=== PATIENT | female | born 1960 | race Caucasian/White ===

== ENCOUNTER 2021-07-20 13:00 | Day surgery (SDC) | payer OTHER ==
[2021-07-20] MEDS ORDERED: Depo-Medrol 40 MG/ML IM ONE (13:01)
[2021-07-20] MEDS ORDERED: LIDOCAINE HCL 2% 100 MG/5 ML IJ ONE (13:01)
[2021-07-20] MEDS ORDERED: Lactated Ringers 1,000 ML IV ONE (15:01)
[2021-07-20] MEDS ORDERED: DIPRIVAN 200 MG/20 ML IV ONE (15:09)
--- NOTE | 2021-07-20 16:54 | XRAY ---
Indication: Left L3-S1 MBB. Intraoperative fluoroscopy provided for 18 seconds. Single digital spot image submitted for interpretation demonstrates posterior needle tips projecting over the expected left L3-S1 nerve roots. Correlate with intraoperative findings/report.
--- NOTE | 2021-07-20 17:10 | XRAY ---
18 seconds fluoroscopy time in surgery for left L3-S1 MBB,
== END 2021-07-20 15:37 | disposition home or self-care (01) ==
LOC: SDC-PAIN 13:00
PROVIDERS: ATTEND Psychiatry & Neurology Pain Medicine
DX: M47.816 Spondylosis without myelopathy or radiculopathy, lumbar region (principal); Z79.899 Other long term (current) drug therapy
CPT/HCPCS: 64493; 64494; 64495; 72020; 77002; J1030; J2704

== ENCOUNTER 2021-09-22 08:28 | Day surgery (SDC) | payer OTHER ==
[2021-09-22] MEDS ORDERED: Xylocaine 1% Vial 30 ML PF IJ ONE (08:29)
[2021-09-22] MEDS ORDERED: Depo-Medrol 40 MG/ML IM ONE (08:29)
[2021-09-22] MEDS ORDERED: Marcaine Mpf 0.5% Vial 30 Ml IJ ONE (08:29)
[2021-09-22] MEDS ORDERED: Lactated Ringers 1,000 ML IV ONE (10:01)
[2021-09-22] MEDS ORDERED: DIPRIVAN 200 MG/20 ML IV ONE (10:17)
--- NOTE | 2021-09-22 11:21 | XRAY ---
Indication: Bilateral SI joint injection. Intraoperative fluoroscopy provided for 20 seconds. 4 digital spot images submitted for interpretation demonstrates posterior needle tip projecting over the inferior left and right SI joint. Correlate with intraoperative findings/report.
--- NOTE | 2021-09-22 14:50 | XRAY ---
20 seconds of fluoroscopy was used in surgery for bilateral SI joints injections.
== END 2021-09-22 10:40 | disposition home or self-care (01) ==
LOC: SDC-PAIN 08:28
PROVIDERS: ATTEND Psychiatry & Neurology Pain Medicine
DX: M46.1 Sacroiliitis, not elsewhere classified (principal); Z79.899 Other long term (current) drug therapy
CPT/HCPCS: 27096; 72202; 77002; G0260; J1030; J2001; J2704

== ENCOUNTER 2021-11-09 11:07 | Day surgery (SDC) | payer OTHER ==
[2021-11-09] MEDS ORDERED: LIDOCAINE HCL 2% 100 MG/5 ML IJ ONE (11:08)
[2021-11-09] MEDS ORDERED: DIPRIVAN 200 MG/20 ML IV ONE (13:13)
--- NOTE | 2021-11-09 14:11 | XRAY ---
Indication: Bilateral L4-S1 MBB. Intraoperative fluoroscopy provided for 10 seconds. 2 digital spot images submitted for interpretation demonstrates posterior needle tips projecting over the expected left and right L4-S1 nerve roots. Correlate with intraoperative findings/report.
[2021-11-09] MEDS ORDERED: Lactated Ringers 1,000 ML IV ONE (14:23)
--- NOTE | 2021-11-09 14:54 | XRAY ---
10 seconds fluoroscopy time in surgery for bilateral L4-S1 MBB.
== END 2021-11-09 13:30 | disposition home or self-care (01) ==
LOC: SDC-PAIN 11:07
PROVIDERS: ATTEND Psychiatry & Neurology Pain Medicine
DX: M47.816 Spondylosis without myelopathy or radiculopathy, lumbar region (principal); Z79.899 Other long term (current) drug therapy
CPT/HCPCS: 64493; 64494; 72020; 77002; J2704

== ENCOUNTER 2021-11-30 14:03 | Day surgery (SDC) | payer OTHER ==
[2021-11-30] MEDS ORDERED: DIPRIVAN 200 MG/20 ML IV ONE (16:29)
[2021-11-30] MEDS ORDERED: Lactated Ringers 1,000 ML IV ONE (16:43)
--- NOTE | 2021-11-30 20:16 | XRAY ---
Indication: Bilateral SI joint injection. Intraoperative fluoroscopy provided for 22 seconds. 5 digital spot images submitted for interpretation demonstrates posterior needle tip projecting over the inferior left and right SI joint. Correlate with intraoperative findings/report.
--- NOTE | 2021-12-01 09:44 | XRAY ---
22 seconds of fluoroscopy was used in surgery for bilateral SI joint injections.
== END 2021-11-30 16:55 | disposition home or self-care (01) ==
LOC: SDC-PAIN 14:03
PROVIDERS: ATTEND Psychiatry & Neurology Pain Medicine
DX: M46.1 Sacroiliitis, not elsewhere classified (principal); Z79.899 Other long term (current) drug therapy
CPT/HCPCS: 27096; 72202; 77002; G0260; J2704

== ENCOUNTER 2022-01-18 08:31 | Day surgery (SDC) | payer OTHER ==
[2022-01-18] MEDS ORDERED: BUPIVACAINE 0.5% VIAL IJ ONE (08:32)
[2022-01-18] MEDS ORDERED: Depo-Medrol 40 MG/ML IM ONE (08:32)
[2022-01-18] MEDS ORDERED: DIPRIVAN 200 MG/20 ML IV ONE (09:53)
[2022-01-18] MEDS ORDERED: Lactated Ringers 1,000 ML IV ONE (14:25)
--- NOTE | 2022-01-18 18:01 | XRAY ---
Indication: Bilateral SI joint injection. Intraoperative fluoroscopy provided for 15 seconds. 4 digital spot images submitted for interpretation demonstrates posterior needle tip projecting over the left and right SI joint. Correlate with intraoperative findings/report.
--- NOTE | 2022-01-18 18:33 | XRAY ---
15 seconds of fluoroscopy was used in surgery for bilateral sacroiliac joint injections.
== END 2022-01-18 10:20 | disposition home or self-care (01) ==
LOC: SDC-PAIN 08:31
PROVIDERS: ATTEND Psychiatry & Neurology Pain Medicine
DX: M46.1 Sacroiliitis, not elsewhere classified (principal); Z79.899 Other long term (current) drug therapy
CPT/HCPCS: 27096; 72202; 77002; J1030; J2704; G0260

== ENCOUNTER 2022-03-01 12:15 | Day surgery (SDC) | payer OTHER ==
[2022-03-01] MEDS ORDERED: LIDOCAINE HCL 2% 100 MG/5 ML IJ ONE (12:16)
[2022-03-01] MEDS ORDERED: DIPRIVAN 200 MG/20 ML IV ONE (15:03)
[2022-03-01] MEDS ORDERED: Lactated Ringers 1,000 ML IV ONE (15:50)
--- NOTE | 2022-03-01 16:43 | XRAY ---
Indication: Bilateral L2-L4 MBB. Intraoperative fluoroscopy provided for 9 seconds. Single digital spot image submitted for interpretation demonstrates posterior needle tips projecting over the expected left and right L2-L4 nerve roots. Correlate with intraoperative findings/report.
--- NOTE | 2022-03-01 16:58 | XRAY ---
9 seconds fluoroscopy time in surgery for bilateral L2-L4 MBB.
== END 2022-03-01 15:24 | disposition home or self-care (01) ==
LOC: SDC-PAIN 12:15
PROVIDERS: ATTEND Psychiatry & Neurology Pain Medicine
DX: M47.816 Spondylosis without myelopathy or radiculopathy, lumbar region (principal); Z79.899 Other long term (current) drug therapy
CPT/HCPCS: 64493; 64494; 72020; 77002; J2704

== ENCOUNTER 2022-04-19 10:32 | Day surgery (SDC) | payer OTHER ==
[2022-04-19] MEDS ORDERED: BUPIVACAINE 0.5% VIAL IJ ONE (10:33)
[2022-04-19] MEDS ORDERED: DIPRIVAN 200 MG/20 ML IV ONE (12:33)
[2022-04-19] MEDS ORDERED: Lactated Ringers 1,000 ML IV ONE (13:04)
--- NOTE | 2022-04-19 13:15 | XRAY ---
9 seconds fluoroscopy time in surgery for bilateral L2-L4 MBB.
== END 2022-04-19 12:54 | disposition home or self-care (01) ==
LOC: SDC-PAIN 10:32
PROVIDERS: ATTEND Psychiatry & Neurology Pain Medicine
DX: M47.816 Spondylosis without myelopathy or radiculopathy, lumbar region (principal); Z79.899 Other long term (current) drug therapy
CPT/HCPCS: 64493; 64494; 72020; 77002; J2704

== ENCOUNTER 2022-05-10 09:45 | Day surgery (SDC) | payer OTHER ==
[2022-05-10] MEDS ORDERED: LIDOCAINE HCL 1% 50 MG/5 ML VL PF IJ ONE (09:46)
[2022-05-10] MEDS ORDERED: BUPIVACAINE 0.5% VIAL IJ ONE (09:46)
[2022-05-10] MEDS ORDERED: Depo-Medrol 40 MG/ML IM ONE (09:46)
[2022-05-10] MEDS ORDERED: DIPRIVAN 200 MG/20 ML IV ONE (11:52)
--- NOTE | 2022-05-10 14:36 | XRAY ---
Indication: Right L2-L4 RFA. Intraoperative fluoroscopy provided for 21 seconds. 3 digital spot image submitted for interpretation demonstrates posterior needle tips projecting over the expected right L2-L4 nerve roots. Correlate with intraoperative findings/report.
--- NOTE | 2022-05-10 14:56 | XRAY ---
21 seconds of fluoroscopy was used in surgery for a right L2-L4 RFA.
[2022-05-10] MEDS ORDERED: Lactated Ringers 1,000 ML IV ONE (15:31)
== END 2022-05-10 12:30 | disposition home or self-care (01) ==
LOC: SDC-PAIN 09:45
PROVIDERS: ATTEND Psychiatry & Neurology Pain Medicine
DX: M47.816 Spondylosis without myelopathy or radiculopathy, lumbar region (principal); Z79.899 Other long term (current) drug therapy
CPT/HCPCS: 64635; 64636; 72100; 77002; J1030; J2001; J2704

== ENCOUNTER 2022-05-17 09:46 | Day surgery (SDC) | payer OTHER ==
[2022-05-17] MEDS ORDERED: BUPIVACAINE 0.5% VIAL IJ ONE (09:47)
[2022-05-17] MEDS ORDERED: Depo-Medrol 40 MG/ML IM ONE (09:47)
[2022-05-17] MEDS ORDERED: LIDOCAINE HCL 1% 50 MG/5 ML VL PF IJ ONE (09:47)
[2022-05-17] MEDS ORDERED: Versed 2 MG/2 ML Injection ONE (10:23)
[2022-05-17] MEDS ORDERED: Lactated Ringers 1,000 ML IV ONE (11:38)
[2022-05-17] MEDS ORDERED: DIPRIVAN 200 MG/20 ML IV ONE (11:49)
--- NOTE | 2022-05-17 12:23 | XRAY ---
Indication: Left L2-L4 RFA. Intraoperative fluoroscopy provided for 39 seconds. 5 digital spot image submitted for interpretation demonstrates posterior needle tips projecting over the expected left L2-L4 nerve roots. Correlate with intraoperative findings/report.
--- NOTE | 2022-05-17 12:25 | XRAY ---
39 seconds of fluoroscopy was used in surgery for a left L2-L4 RFA.
== END 2022-05-17 12:18 | disposition home or self-care (01) ==
LOC: SDC-PAIN 09:46
PROVIDERS: ATTEND Psychiatry & Neurology Pain Medicine
DX: M47.816 Spondylosis without myelopathy or radiculopathy, lumbar region (principal); Z79.899 Other long term (current) drug therapy
CPT/HCPCS: 64635; 64636; 72100; 77002; J1030; J2001; J2250; J2704

== ENCOUNTER 2022-08-02 08:52 | Day surgery (SDC) | payer OTHER ==
[2022-08-02] MEDS ORDERED: Depo-Medrol 40 MG/ML IM ONE (08:53)
[2022-08-02] MEDS ORDERED: BUPIVACAINE 0.5% VIAL IJ ONE (08:53)
[2022-08-02] MEDS ORDERED: DIPRIVAN 200 MG/20 ML IV ONE (10:45)
--- NOTE | 2022-08-02 12:19 | XRAY ---
Indication: Bilateral SI joint injection. Intraoperative fluoroscopy provided for 15 seconds. 4 digital spot image submitted for interpretation demonstrates posterior needle tip projecting over the left and right SI joint. Correlate with intraoperative findings/report.
--- NOTE | 2022-08-02 12:44 | XRAY ---
15 seconds of fluoroscopy was used in surgery for a bilateral sacroiliac joint injection.
[2022-08-02] MEDS ORDERED: Lactated Ringers 1,000 ML IV ONE (13:16)
== END 2022-08-02 11:15 | disposition home or self-care (01) ==
LOC: SDC-PAIN 08:52
PROVIDERS: ATTEND Psychiatry & Neurology Pain Medicine
DX: M46.1 Sacroiliitis, not elsewhere classified (principal); Z79.899 Other long term (current) drug therapy
CPT/HCPCS: 01992; 27096; 72202; 77002; G0260; J1030; J2704

== ENCOUNTER 2022-09-27 13:31 | Day surgery (SDC) | payer OTHER ==
[2022-09-27] MEDS ORDERED: Sodium Chloride 0.9(Preservative Free) 10 ML IJ ONE (13:32)
[2022-09-27] MEDS ORDERED: LIDOCAINE HCL 1% 50 MG/5 ML VL PF IJ ONE (13:32)
[2022-09-27] MEDS ORDERED: Depo-Medrol 40 MG/ML IM ONE (13:32)
[2022-09-27] MEDS ORDERED: DIPRIVAN 200 MG/20 ML IV ONE (15:31)
--- NOTE | 2022-09-27 16:41 | XRAY ---
Indication: Lumbar MARQUEZ. Intraoperative fluoroscopy provided for 19 seconds. 3 digital spot image submitted for interpretation demonstrates posterior needle tip projecting posterior to lumbosacral interspace. Small amount of contrast injected for needle tip placement. Correlate with intraoperative findings/report.
--- NOTE | 2022-09-27 16:44 | XRAY ---
19 seconds of fluoroscopy was used in surgery for a lumbar MARQUEZ.
[2022-09-27] MEDS ORDERED: Lactated Ringers 1,000 ML IV ONE (17:42)
== END 2022-09-27 16:05 | disposition home or self-care (01) ==
LOC: SDC-PAIN 13:31
PROVIDERS: ATTEND Psychiatry & Neurology Pain Medicine
DX: M54.16 Radiculopathy, lumbar region (principal); Z79.899 Other long term (current) drug therapy
CPT/HCPCS: 62323; 72100; 77003; J1030; J2001; J2704; Q9966

== ENCOUNTER 2023-01-17 07:57 | Day surgery (SDC) | payer OTHER ==
[2023-01-17] MEDS ORDERED: BUPIVACAINE 0.5% VIAL IJ ONE (07:58)
[2023-01-17] MEDS ORDERED: Depo-Medrol 40 MG/ML IM ONE (07:58)
[2023-01-17] MEDS ORDERED: DIPRIVAN 200 MG/20 ML IV ONE (09:35)
[2023-01-17] MEDS ORDERED: MORPHINE SULFATE 2 MG INJ ONE (09:51)
[2023-01-17] MEDS ORDERED: Lactated Ringers 1,000 ML IV ONE (10:27)
--- NOTE | 2023-01-17 11:34 | XRAY ---
Indication: Bilateral SI joint injection. Intraoperative fluoroscopy provided for 16 seconds. 4 digital spot images submitted for interpretation demonstrates posterior needle tip projecting over the expected left and right SI joint. Correlate with intraoperative findings/report.
--- NOTE | 2023-01-17 13:58 | XRAY ---
16 seconds of fluoroscopy was used in surgery for a bilateral sacroiliac joint injection.
== END 2023-01-17 10:13 | disposition home or self-care (01) ==
LOC: SDC-PAIN 07:57
PROVIDERS: ATTEND Psychiatry & Neurology Pain Medicine
DX: M46.1 Sacroiliitis, not elsewhere classified (principal)
CPT/HCPCS: 01992; 27096; 72202; 77002; G0260; J1030; J2270; J2704

== ENCOUNTER 2023-06-06 14:39 | Day surgery (SDC) | payer OTHER ==
[2023-06-06] MEDS ORDERED: Depo-Medrol 40 MG/ML IM ONE (14:40)
[2023-06-06] MEDS ORDERED: BUPIVACAINE 0.5% VIAL IJ ONE (14:40)
[2023-06-06] MEDS ORDERED: DIPRIVAN 200 MG/20 ML IV ONE (17:45)
[2023-06-06] MEDS ORDERED: Lactated Ringers 1,000 ML IV ONE (18:20)
--- NOTE | 2023-06-06 18:36 | XRAY ---
Indication: Bilateral SI joint injection. Intraoperative fluoroscopy provided for 43 seconds. 5 digital spot images submitted for interpretation demonstrates posterior needle tip projecting over the left and right SI joint. Small amount of contrast injected for needle tip placement. Correlate with intraoperative findings/report.
--- NOTE | 2023-06-07 08:39 | XRAY ---
43 seconds of fluoroscopy was used in surgery for a bilateral sacroiliac joint injection.
== END 2023-06-06 18:17 | disposition home or self-care (01) ==
LOC: SDC-PAIN 14:39
PROVIDERS: ATTEND Psychiatry & Neurology Pain Medicine
DX: M46.1 Sacroiliitis, not elsewhere classified (principal)
CPT/HCPCS: 01992; 27096; 72202; 77002; G0260; J1030; J2704; Q9966

== ENCOUNTER 2023-11-07 12:47 | Day surgery (SDC) | payer OTHER ==
[2023-11-07] MEDS ORDERED: DIPRIVAN 200 MG/20 ML IV ONE (14:46)
[2023-11-07] MEDS ORDERED: Lactated Ringers 1,000 ML IV ONE (15:32)
--- NOTE | 2023-11-07 16:54 | XRAY ---
Indication: Bilateral SI joint injection. Intraoperative fluoroscopy provided for 15 seconds. 3 digital spot image submitted for interpretation demonstrates posterior needle tips projecting over the expected left and right SI joints. Small amount of contrast injected for needle tip placement. Correlate with intraoperative findings/report.
--- NOTE | 2023-11-07 17:04 | XRAY ---
15 seconds of fluoroscopy was used in surgery for a bilateral sacroiliac joint injection.
== END 2023-11-07 15:13 | disposition home or self-care (01) ==
LOC: SDC-PAIN 12:47
PROVIDERS: ATTEND Psychiatry & Neurology Pain Medicine
DX: M46.1 Sacroiliitis, not elsewhere classified (principal)
CPT/HCPCS: 01992; 27096; 72202; 77002; G0260; J2704; Q9966

== ENCOUNTER 2024-01-16 11:52 | Day surgery (SDC) | payer OTHER ==
[2024-01-16] MEDS ORDERED: Decadron 4 MG INJ IV ONE (11:53)
[2024-01-16] MEDS ORDERED: Xylocaine-Mpf 2% 5 Ml Vial IJ ONE (11:53)
[2024-01-16] MEDS ORDERED: DIPRIVAN 200 MG/20 ML IV ONE (13:26)
[2024-01-16] MEDS ORDERED: Lactated Ringers 1,000 ML IV ONE (14:20)
--- NOTE | 2024-01-16 14:32 | XRAY ---
Indication: Left C2-C4 MBB. Intraoperative fluoroscopy provided for 8 seconds. 2 digital spot image submitted for interpretation demonstrates posterior needle tips projecting over the expected left C2-C4 nerve roots. Correlate with intraoperative findings/report.
--- NOTE | 2024-01-16 14:38 | XRAY ---
8 seconds of fluoroscopy was used in surgery for a left C2-C4 MBB.
== END 2024-01-16 13:57 ==
LOC: SDC-PAIN 11:52
PROVIDERS: ATTEND Psychiatry & Neurology Pain Medicine
DX: M47.812 Spondylosis without myelopathy or radiculopathy, cervical region (principal)
CPT/HCPCS: 64490; 64491; 72040; 77002; J1100; J2704

== ENCOUNTER 2024-02-13 13:43 | Day surgery (SDC) | payer OTHER ==
[2024-02-13] MEDS ORDERED: Xylocaine-Mpf 2% 5 Ml Vial IJ ONE (13:44)
[2024-02-13] MEDS ORDERED: DIPRIVAN 200 MG/20 ML IV ONE (15:03)
[2024-02-13] MEDS ORDERED: Lactated Ringers 1,000 ML IV ONE (15:10)
--- NOTE | 2024-02-13 16:38 | XRAY ---
Indication: Right C2-C4 MBB. Intraoperative fluoroscopy provided for 11 seconds. 2 digital spot image submitted for interpretation demonstrates posterior needle tips projecting over the expected right C2-C4 nerve roots. Correlate with intraoperative findings/report.
--- NOTE | 2024-02-13 16:58 | XRAY ---
11 seconds of fluoroscopy was used in surgery for a right C2-C4 MBB.
== END 2024-02-13 15:30 | disposition home or self-care (01) ==
LOC: SDC-PAIN 13:43
PROVIDERS: ATTEND Psychiatry & Neurology Pain Medicine
DX: M47.812 Spondylosis without myelopathy or radiculopathy, cervical region (principal)
CPT/HCPCS: 64490; 64491; 72040; 77002; J2704

== ENCOUNTER 2024-06-11 11:16 | Day surgery (SDC) | payer OTHER ==
[2024-06-11] MEDS ORDERED: Lactated Ringers 500 ML IV ONE (11:19)
[2024-06-11] MEDS ORDERED: propofoL IV ONE (12:40)
--- NOTE | 2024-06-11 13:10 | XRAY ---
21 seconds of fluoroscopy was used in surgery for a left C2-C4 MBB.
--- NOTE | 2024-06-11 13:19 | XRAY ---
Indication: Left C2-C4 MBB. Intraoperative fluoroscopy provided for 21 seconds. 2 digital spot images submitted for interpretation demonstrates posterior needle tips projecting over expected left C2-C4 nerve roots. Correlate with intraoperative findings/report.
== END 2024-06-11 13:15 | disposition home or self-care (01) ==
LOC: SDC-PAIN 11:16
PROVIDERS: ATTEND Psychiatry & Neurology Pain Medicine
DX: M47.812 Spondylosis without myelopathy or radiculopathy, cervical region (principal)
CPT/HCPCS: 72040; 77002; J2704

== ENCOUNTER 2024-07-02 14:17 | Day surgery (SDC) | payer OTHER ==
[2024-07-02] MEDS ORDERED: dexAMETHasone sodium phosphate IJ ONE (14:18)
[2024-07-02] MEDS ORDERED: BUPIVACAINE 0.5% VIAL IJ ONE (14:18)
[2024-07-02] MEDS ORDERED: Lactated Ringers 500 ML IV ONE (14:20)
[2024-07-02] MEDS ORDERED: propofoL IV ONE (15:33)
--- NOTE | 2024-07-02 16:36 | XRAY ---
Indication: Right C2-C4 MBB. Intraoperative fluoroscopy provided for 9 seconds. 2 digital spot images submitted for interpretation demonstrates posterior needle tips projecting over expected right C2-C4 nerve roots. Correlate with intraoperative findings/report.
--- NOTE | 2024-07-02 17:06 | XRAY ---
9 seconds of fluoroscopy were used in surgery for right C2-C4 MBB.
== END 2024-07-02 16:10 | disposition home or self-care (01) ==
LOC: SDC-PAIN 14:17
PROVIDERS: ATTEND Psychiatry & Neurology Pain Medicine
DX: M47.812 Spondylosis without myelopathy or radiculopathy, cervical region (principal)
CPT/HCPCS: 64490; 64491; 72040; 77002; J1100; J2704

== ENCOUNTER 2024-07-16 13:51 | Day surgery (SDC) | payer OTHER ==
[2024-07-16] MEDS ORDERED: dexAMETHasone sodium phosphate IJ ONE (13:52)
[2024-07-16] MEDS ORDERED: BUPIVACAINE 0.5% VIAL IJ ONE (13:52)
[2024-07-16] MEDS ORDERED: LIDOCAINE HCL 1% AMPUL 5 ML IJ ONE (13:52)
[2024-07-16] MEDS ORDERED: Lactated Ringers 500 ML IV ONE (14:21)
[2024-07-16] MEDS ORDERED: propofoL IV ONE ×2 (15:58→16:15)
--- NOTE | 2024-07-16 20:18 | XRAY ---
Indication: Left C2-C4 RFA. Intraoperative fluoroscopy provided for 25 seconds. 2 digital spot images submitted for interpretation demonstrates posterior needle tips projecting over expected left C2-C4 nerve roots. Correlate with intraoperative findings/report.
--- NOTE | 2024-07-16 20:27 | XRAY ---
25 seconds of fluoroscopy were used in surgery for a left C2-C4 RFA.
== END 2024-07-16 16:44 | disposition home or self-care (01) ==
LOC: SDC-PAIN 13:51
PROVIDERS: ATTEND Psychiatry & Neurology Pain Medicine
DX: M47.812 Spondylosis without myelopathy or radiculopathy, cervical region (principal)
CPT/HCPCS: 64633; 64634; 72040; 77002; J1100; J2704

== ENCOUNTER 2024-07-17 12:19 | Day surgery (SDC) | payer OTHER ==
[2024-07-17] MEDS ORDERED: dexAMETHasone sodium phosphate IJ ONE (12:20)
[2024-07-17] MEDS ORDERED: BUPIVACAINE 0.5% VIAL IJ ONE (12:20)
[2024-07-17] MEDS ORDERED: LIDOCAINE HCL 1% 50 MG/5 ML VL IJ ONE (12:20)
[2024-07-17] MEDS ORDERED: Lactated Ringers 500 ML IV ONE (13:26)
[2024-07-17] MEDS ORDERED: propofoL IV ONE (14:18)
--- NOTE | 2024-07-17 14:58 | XRAY ---
Indication: Right C2-C4 RFA. Intraoperative fluoroscopy provided for 20 seconds. 2 digital spot image submitted for interpretation demonstrates posterior needle tips projecting over expected right C2-C4 nerve roots. Correlate with intraoperative findings/report.
--- NOTE | 2024-07-17 15:24 | XRAY ---
20 seconds of fluoroscopy was used in surgery for a right C2-C4 RFA.
== END 2024-07-17 14:50 | disposition home or self-care (01) ==
LOC: SDC-PAIN 12:19
PROVIDERS: ATTEND Psychiatry & Neurology Pain Medicine
DX: M47.812 Spondylosis without myelopathy or radiculopathy, cervical region (principal)
CPT/HCPCS: 64633; 64634; 72040; 77002; J1100; J2704

== ENCOUNTER 2024-08-06 13:24 | Day surgery (SDC) | payer OTHER ==
[2024-08-06] MEDS ORDERED: BUPIVACAINE 0.5% VIAL IJ ONE (13:25)
[2024-08-06] MEDS ORDERED: Depo-Medrol 40 MG/ML IM ONE (13:25)
[2024-08-06] MEDS ORDERED: propofoL IV ONE (14:40)
--- NOTE | 2024-08-06 16:34 | XRAY ---
Indication: Bilateral SI joint injection. Intraoperative fluoroscopy provided for 21 seconds. 4 digital spot image submitted for interpretation demonstrates posterior needle tips projecting over left and right SI joints. Small amount of contrast injected for needle tip placement. Correlate with intraoperative findings/report.
--- NOTE | 2024-08-06 16:37 | XRAY ---
21 seconds of fluoroscopy was used in surgery for a bilateral sacroiliac joint injection.
== END 2024-08-06 15:20 | disposition home or self-care (01) ==
LOC: SDC-PAIN 13:24
PROVIDERS: ATTEND Psychiatry & Neurology Pain Medicine
DX: M46.1 Sacroiliitis, not elsewhere classified (principal)
CPT/HCPCS: 27096; 72202; J2704; Q9966

== ENCOUNTER 2025-03-04 12:13 | Day surgery (SDC) | payer OTHER ==
[2025-03-04] MEDS ORDERED: BUPIVACAINE 0.5% VIAL IJ ONE (12:14)
[2025-03-04] MEDS ORDERED: LIDOCAINE HCL 1% 50 MG/5 ML VL IJ ONE (12:14)
[2025-03-04] MEDS ORDERED: methylPREDNISolone acetate IM ONE (12:14)
[2025-03-04] MEDS ORDERED: propofoL IV ONE (14:06)
--- NOTE | 2025-03-04 14:51 | XRAY ---
Indication: Right L2-L4 RFA. Intraoperative fluoroscopy provided for 20 seconds. 5 digital spot image submitted for interpretation demonstrates posterior needle tips projecting over expected right L2-L4 nerve roots. Correlate with intraoperative findings/report.
[2025-03-04] MEDS ORDERED: Lactated Ringers 1,000 ML IV ONE (14:52)
--- NOTE | 2025-03-04 17:00 | XRAY ---
20 seconds of fluoroscopy was used in surgery for a right L2-L4 RFA.
== END 2025-03-04 14:48 | disposition home or self-care (01) ==
LOC: SDC-PAIN 12:13
PROVIDERS: ATTEND Psychiatry & Neurology Pain Medicine
DX: M47.817 Spondylosis without myelopathy or radiculopathy, lumbosacral region (principal)

== ENCOUNTER 2025-03-18 12:18 | Day surgery (SDC) | payer OTHER ==
[2025-03-18] MEDS ORDERED: BUPIVACAINE 0.5% VIAL IJ ONE (12:19)
[2025-03-18] MEDS ORDERED: methylPREDNISolone acetate IM ONE (12:19)
[2025-03-18] MEDS ORDERED: LIDOCAINE HCL 1% 50 MG/5 ML VL IJ ONE (12:19)
[2025-03-18] MEDS ORDERED: Lactated Ringers 1,000 ML IV ONE (13:58)
[2025-03-18] MEDS ORDERED: propofoL IV ONE (14:13)
--- NOTE | 2025-03-18 16:37 | XRAY ---
Indication: Left L2-L4 RFA. Intraoperative fluoroscopy provided for 19 seconds. 5 digital spot image submitted for interpretation demonstrates posterior needle tips projecting over expected left L2-L4 nerve roots. Correlate with intraoperative findings/report.
--- NOTE | 2025-03-18 16:43 | XRAY ---
19 seconds of fluoroscopy was used in surgery for a left L2-L4 RFA.
== END 2025-03-18 14:50 | disposition home or self-care (01) ==
LOC: SDC-PAIN 12:18
PROVIDERS: ATTEND Psychiatry & Neurology Pain Medicine
DX: M47.817 Spondylosis without myelopathy or radiculopathy, lumbosacral region (principal)

== ENCOUNTER 2025-04-08 12:03 | Day surgery (SDC) | payer OTHER ==
[2025-04-08] MEDS ORDERED: BUPIVACAINE 0.5% VIAL IJ ONE (12:04)
[2025-04-08] MEDS ORDERED: methylPREDNISolone acetate IM ONE (12:04)
[2025-04-08] MEDS ORDERED: LIDOCAINE HCL 1% 50 MG/5 ML VL IJ ONE (12:04)
[2025-04-08] MEDS ORDERED: propofoL IV ONE (14:09)
[2025-04-08] MEDS ORDERED: Xylocaine-Mpf 2% 5 Ml Vial ONE (14:10)
[2025-04-08] MEDS ORDERED: Lactated Ringers 1,000 ML IV ONE (15:45)
--- NOTE | 2025-04-08 16:40 | XRAY ---
Indication: Bilateral SI joint injection. Intraoperative fluoroscopy provided for 36 seconds. 2 digital spot image submitted for interpretation demonstrates posterior needle tip projecting over left and right SI joints. Small amount of contrast injected for both needle tip placement. Correlate with intraoperative findings/report.
--- NOTE | 2025-04-08 17:01 | XRAY ---
36 seconds of fluoroscopy was used in surgery for a bilateral sacroiliac joint injection.
== END 2025-04-08 14:45 | disposition home or self-care (01) ==
LOC: SDC-PAIN 12:03
PROVIDERS: ATTEND Psychiatry & Neurology Pain Medicine
DX: M46.1 Sacroiliitis, not elsewhere classified (principal)